=== PATIENT | male | born 1975 | race Caucasian/White ===

== ENCOUNTER → 2016-10-29 | Outpatient (CLI) | payer OTHER ==
--- NOTE | 2016-10-29 21:41 | PN ---
DATE OF SERVICE: 10/29/2016 This patient is a 41-year-old gentleman who has been followed in the sleep center for treatment of obstructive sleep apnea-hypopnea syndrome. We discussed results of his sleep studies with the patient in detail. Diagnostic sleep study showed apnea-hypopnea index 22.2 with oxygen desaturation to 87.9%. CPAP titration showed that pressure 14 is effective for normalization of patient's respirations. At present patient has received his CPAP unit. CPAP pressure is 14 cm of water. I checked his CPAP unit. Usage is 100% of the time more than 4 hours; average is 6.8 hours. Apnea-hypopnea index is only 2.0. Leak is quite high at 53 L/minute, but patient several times has changed his mask from full-face mask to the nasal mask and then to the nasal pillow mask, and at present he is using nasal pillow mask with chin strap. He feels better during sleep and he feels better during the day. [place] Sleepiness Scale today is 4. Patient still sometimes wakes up from sleep at night but is definitely significantly better than before. MEDICATIONS: Ambien 10 mg. Lexapro. PHYSICAL EXAMINATION: Patient in no distress. VITAL SIGNS: BP 126/82, HR 72, RR 16. Weight 244. Temperature 97.0. Oxygen saturation at room air 95%. HEENT: PERRLA, EOMI. Evaluation of oropharynx showed tongue protrudes midline; low position of soft palate. NECK: Supple. No JVD. Thyroid is not palpable. LUNGS: Clear to percussion and to auscultation. Good air exchange. No wheezing or rhonchi. HEART: S1, S2 regular. No murmurs, gallops or rubs. ABDOMEN: Slightly obese. EXTREMITIES: No clubbing or cyanosis. 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 Cranial nerves 2 to 7 intact. There is no fasciculation or atrophy noted. No focal deficits observed. IMPRESSION: 1. Moderate obstructive sleep apnea-hypopnea syndrome. Apnea-hypopnea index 22.2 with oxygen desaturation to 87.9%, controlled with CPAP at 14 cm of water. Patient demonstrated 100% compliance with treatment, benefitting from treatment. 2. 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 3. Sometimes patient has awakenings from sleep, at present on treatment with Ambien additionally 10 mg at bedtime. 4. Anxiety. PLAN: 1. Continue treatment with CPAP every night for the whole night. 2. Losing weight. 3. Sleep hygiene with regular time in bed for at least 8 hours. 4. Precautions related to driving. Patient is aware about civil and criminal liability for unsafe driving. 5. We proceed with maintenance of wakefulness test to objectively confirm patient's normal alertness during the day. Thank you very much for allowing me to participate in the management of your patient. Sincerely, Seth Ahn MD, PhD, FAASM. Diplomat of [place] [employer], Sleep Medicine Board by [place] [employer], [place] [employer]
== END | disposition home or self-care (01) ==
LOC: SLEEP 16:20
PROVIDERS: ATTEND Internal Medicine
DX: G47.33 Obstructive sleep apnea (adult) (pediatric) (principal); F41.9 Anxiety disorder, unspecified; Z99.89 Dependence on other enabling machines and devices; Z79.899 Other long term (current) drug therapy

== ENCOUNTER → 2017-10-14 | Outpatient (CLI) | payer BC ==
--- NOTE | 2017-10-14 17:25 | SFUN ---
SLEEP CENTER FOLLOW UP NOTE DATE OF SERVICE: 10/14/2017 42-year-old gentleman who has been followed in Sleep Center for treatment of obstructive sleep apnea-hypopnea syndrome. Patient continued to use his CPAP equipment successfully without significant problems. Sometimes she can see that there is a leak from the mask according to reading from the machine. He also trying to use the chin strap. He has 2 different styles of nasal mask, nasal pillow mask and nasal mask. Otherwise, he is able to use equipment every night without significant problem. Feel better with this and does not have any sleepiness during the day. [place] Sleepiness Scale is 4. About 1 year ago we did the maintenance of wakefulness test and the patient passed through the test without falling asleep. I checked his CPAP unit. CPAP pressure is 14 cm of water. Patient using it practically every night 29/30 nights. Average usage is 5.4 hours. Apnea-hypopnea index is only 1.7, which is perfect. Leak reading is quite significant 54 L/minute. MEDICATIONS: Ambien, Lexapro. With these medications patient does not have problem with falling asleep. PHYSICAL EXAM: GENERAL A gentleman without distress. VITAL SIGNS BP 137/84, HR 76, RR 16, height 5 feet 10 inches, weight 244, BMI 35. The patient increased his weight about 9 pounds since previous sleep study. LEXA MENEDZ, EOMI, evaluation of oropharynx showed low position of soft palate. NECK Supple, no JVD. Thyroid is not palpable. LUNGS Clear to percussion and to auscultation. Good air exchange. No wheezing or rhonchi. HEART S1, S2 regular. No murmurs, gallops, or rubs. ABDOMEN Slightly obese. Soft and nontender. Bowel sounds are present. No organomegaly appreciated. EXTREMITIES No clubbing or cyanosis. 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 Cranial nerves 2 to 7 intact. There is no fasciculation or atrophy. noted. No focal deficits observed. IMPRESSION: 1. Moderate obstructive sleep apnea-hypopnea syndrome; apnea-hypopnea index 22.2, on control with CPAP at 14 cm of water. Patient demonstrated great compliance with treatment benefitting from treatment. 2. Significant leak from the mask which needs to be addressed. 3. Obesity, BMI 35. 4. History of anxiety. 5. Status post surgery for nasal septum deviation about 30 years ago. 6. Status post left knee surgery. 7. 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 PLAN: 1. Patient will continue to use CPAP equipment every night for the whole night. 2. Losing weight. 3. The patient should use a chinstrap every night. 4. We will show patient different style of nasal pillows. 5. Precautions related to driving. No driving if feeling sleepiness. Patient is aware about civil and criminal liability for unsafe driving. Otherwise he should be able to continue driving truck. 6. Prescription for all necessary CPAP supplies including mask, tube, filters. Thank you very much for allowing me to participate in management of your patient. Sincerely, Seth Ahn MD, PhD, FAASM Diplomat of [place] [employer] [place] [employer] Cementer Machine Applicator of [facility] [place] ADITYA / ARIEL: [id number] /
== END | disposition home or self-care (01) ==
LOC: SLEEP 15:35
PROVIDERS: ATTEND Internal Medicine
DX: G47.33 Obstructive sleep apnea (adult) (pediatric) (principal); E66.9 Obesity, unspecified; F41.9 Anxiety disorder, unspecified; Z98.890 Other specified postprocedural states; Z68.35 Body mass index [BMI] 35.0-35.9, adult; Z87.09 Personal history of other diseases of the respiratory system; Z79.899 Other long term (current) drug therapy; Z99.89 Dependence on other enabling machines and devices

== ENCOUNTER → 2018-03-09 | Outpatient (CLI) | payer BC ==
--- NOTE | 2018-03-09 11:21 | XR ---
Right hand HISTORY: Infection, acute osteomyelitis 3 views of the first digit of the right hand Correlation to prior exam 02/19/2018 First digit shows posttraumatic change as on prior. There is an overlying bandage which may obscure d etail. No evident periostitis. Question some sclerosis involving the distal phalanx of the first digi t of the right hand. Suspect soft tissue swelling is present. Possible bone erosion present at the le chel of the interphalangeal joint. IMPRESSION: Findings could be indicative of osteomyelitis. Correlate for cellulitis.
== END | disposition home or self-care (01) ==
LOC: RADXRMAIN 09:33
PROVIDERS: ATTEND Internal Medicine Infectious Disease
DX: M86.141 Other acute osteomyelitis, right hand (principal)

== ENCOUNTER → 2018-11-10 | Outpatient (CLI) | payer BC ==
--- NOTE | 2018-11-10 11:37 | SFUN ---
SLEEP CENTER FOLLOW UP NOTE DATE OF SERVICE: 11/10/2018 A 43-year-old gentleman who has been followed in the sleep center for treatment of obstructive sleep apnea-hypopnea syndrome. The patient continued to use equipment every night for the whole night without significant problems. No snoring with the machine. No excessive daytime sleepiness. [place] Sleepiness Scale is 3. I checked his CPAP unit. CPAP pressure is 14 cm of water. For the last year the patient used it 326 out of 365 nights and 307 nights out of 365 nights more than 4 hours. Average usage is 5.4 hours. Average leak for the whole year, 48 L/minute. Apnea-hypopnea index reading for the whole year 2.3, which is normal. The patient is using chinstrap and nasal pillow mask possibly did not change his chin strap for the long time. MEDICATIONS: None. PHYSICAL EXAMINATION: During physical exam, patient in no distress. VITAL SIGNS: BP 131/81, HR 63, RR 16, height 5 feet 10 inches, weight 256.8. Patient increased his weight of 12 pounds. Temperature 97.9, oxygen saturation at room air 88%. HEENT: PERRLA, EOMI. Oropharynx low position of soft palate, Mallampati 3-4. NECK: Supple, no JVD. Thyroid is not palpable. LUNGS: Clear to percussion and to auscultation. Good air exchange. No wheezing or rhonchi. HEART: S1, S2 regular. No murmurs, gallops, or rubs. ABDOMEN: Slightly obese. EXTREMITIES: No clubbing or cyanosis. 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 Cranial nerves 2 to 7 intact. There is no fasciculation or atrophy. noted. No focal deficits observed. IMPRESSION: 1. Moderate obstructive sleep apnea-hypopnea syndrome; apnea-hypopnea index 22.2 on control with CPAP with a pressure of 14 cm of water. Patient demonstrated good compliance with treatment benefitting from treatment. 2. Patient continued to have significant leak from the mask, but apnea-hypopnea index in normal range. 3. Obesity. Patient increased weight another 12 pounds. 4. History of anxiety. 5. Status post surgery for nasal septum deviation about 30 years ago. 6. Status post left knee surgery. 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 PLAN: 1. Patient will continue to use CPAP equipment every night for the whole night with the same pressure. 2. Losing weight. 3. Patient should get replacement for his CPAP supplies including mask, tube, filters and chin strap. 4. Precautions related to driving. No driving if feeling sleepiness. Patient is aware about civil and criminal liability of unsafe driving. 5. Sleep hygiene with regular time in bed for 7-1/2 to 8 hours. Thank you very much for allowing me to participate in management of your patient. Sincerely, Seth Ahn MD, PhD, FAASM Diplomat of [place] [employer] [place] [employer] Sr. Pricing Analyst of [facility] [place] MMODL / IJN: [id number] /
== END | disposition home or self-care (01) ==
LOC: SLEEP 10:11
PROVIDERS: ATTEND Internal Medicine
DX: G47.33 Obstructive sleep apnea (adult) (pediatric) (principal); E66.9 Obesity, unspecified; Z98.890 Other specified postprocedural states; Z86.59 Personal history of other mental and behavioral disorders; Z99.89 Dependence on other enabling machines and devices